=== PATIENT | male | born 2000 | race Two or more races ===

== ENCOUNTER 2022-05-11 11:18 | Emergency (ER) | payer MEDICAID ==
[~2022-05-11] VITALS: Ht 172.7 cm; Wt 90.7 kg
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
[2022-05-11] MEDS ORDERED: IBUPROFEN 400 MG TABLET ONE (11:59)
[2022-05-11] MEDS ORDERED: IBUPROFEN 400 MG TABLET PO ONE (12:00)
--- NOTE | 2022-05-11 12:00 | NUR ---
LAB AT BEDSIDE
--- NOTE | 2022-05-11 12:04 | NUR ---
PT UNABLE TO PROVIDED URINE SAMPLE AT THIS TIME, PROVIDED WITH CUP AND STATED HE WILL LET STAFF KNOW WHEN HE NEEDS TO USE THE RESTROOM.
--- NOTE | 2022-05-11 12:08 | NUR ---
COVID TEST COLLECTED AND SENT
[2022-05-11 12:34] LABS: BASOPHILS % (AUTO) 0.3 % (0.0-2.0); EOSINOPHILS % (AUTO) 0.1 % (0.0-6.0); HEMATOCRIT 46 % (39-51); HEMOGLOBIN 15.6 g/dL (13.5-17.5); LYMPHOCYTES # (AUTO) 1.4 K/uL (0.8-4.8); LYMPHOCYTES % (AUTO) 15.4 % (20.0-44.0); MEAN CORPUSCULAR HGB CONC 34 g/dl (31.0-36.0); MEAN CORPUSCULAR VOLUME 91 fL (80-96); MONOCYTES # (AUTO) 0.6 K/uL (0.1-1.30); MONOCYTES % (AUTO) 6.6 % (2.0-12.0); NEUTROPHILS # (AUTO) 6.9 K/uL (1.8-8.9); NEUTROPHILS % (AUTO) 77.6 % (43.0-81.0); PLATELET COUNT (AUTO) 207 K/uL (150-450); RED BLOOD CELL COUNT(AUTO) 5.07 MIL/uL (4.5-6.0); WHITE BLOOD COUNT (AUTO) 8.9 K/uL (4.3-11.0)
[2022-05-11 12:49] LABS: CALCIUM, SERUM 9.2 mg/dL (8.5-10.1); CARBON DIOXIDE 25 mmol/L (21-32); CHLORIDE 105 mmol/L (98-107); GLUCOSE 75 mg/dL (74-106); POTASSIUM 3.7 mmol/L (3.5-5.1); SODIUM SERUM 141 mmol/L (136-145); UREA NITROGEN, BLOOD 9 mg/dL (7-18)
[2022-05-11 12:55] LABS: ALANINE AMINOTRANSFERASE 25 U/L (12-78); ALBUMIN 4.6 g/dL (3.4-5.0); ALCOHOL, BLOOD 67 mg/dL (0-0); ALKALINE PHOSPHATASE 90 U/L (46-116); ASPARTATE AMINOTRANSFERASE 19 U/L (15-37); BILIRUBIN,DIRECT 0.2 mg/dL (0.0-0.2); BILIRUBIN,TOTAL 1.1 mg/dL (0.2-1.0); TOTAL PROTEIN, SERUM 8.5 g/dL (6.4-8.2)
[2022-05-11 12:56] LABS: ACETAMINOPHEN < 10 ug/ml (10-30)
--- NOTE | 2022-05-11 13:15 | NUR ---
URINE COLLECTED AND SENT TO LAB
[2022-05-11 13:57] LABS: BILIRUBIN,URINE SMALL (NEGATIVE); COLOR,URINE YELLOW (YELLOW); LEUKOCYTE ESTERASE ,URINE NEGATIVE (NEGATIVE); NITRITE, URINE NEGATIVE (NEGATIVE); PH,URINE 6.5 (5.0-8.0); PROTEIN,URINE 100 mg/dl (NEGATIVE); UGLUCOSE NEGATIVE (NEGATIVE)
[2022-05-11 14:09] LABS: BACTERIA,URINE 2+ /HPF (None Seen); RBC,URINE 0-2 /HPF (0-2)
[2022-05-11] MEDS ORDERED: LORAZEPAM INJ 2 MG/ML VIAL IM ONE (16:30)
[2022-05-11] MEDS ORDERED: diphenhydrAMINE HCL 50 MG/ML VIAL IM ONE (16:30)
[2022-05-11] MEDS ORDERED: HALOPERIDOL LACTATE INJ 5 MG/ML VIAL IM ONE (16:30)
[2022-05-11] MEDS ORDERED: HALOPERIDOL LACTATE INJ 5 MG/ML VIAL ONE (16:40)
[2022-05-11] MEDS ORDERED: LORAZEPAM INJ 2 MG/ML VIAL ONE (16:40)
[2022-05-11] MEDS ORDERED: diphenhydrAMINE HCL 50 MG/ML VIAL ONE (16:40)
--- NOTE | 2022-05-11 19:39 | NUR ---
PT EATING FOOD; TOLERATING WELL. SAFETY MEASURES IN PLACE.
[2022-05-11] MEDS ORDERED: DIAZEPAM 5 MG TABLET ONE (20:51)
--- NOTE | 2022-05-11 20:54 | NUR ---
PT C/O NOT BEING ABLE TO SLEEP. ADMINISTERED VALIUM 5MG ORDERED. WILL REASSESS PT
[2022-05-11] MEDS ORDERED: DIAZEPAM 5 MG TABLET PO ONE (21:00)
--- NOTE | 2022-05-12 08:44 | NUR ---
NICK CRUMP: (GIRLFRIEND) [phone]
--- NOTE | 2022-05-12 11:00 | NUR ---
PT CLEARED FOR D/C BY ALLI DICKERSON PSYCH.
[2022-05-12] MEDS ORDERED: NAPR-1192 PO (11:31)
[2022-05-12 11:57] VITALS: BP 126/76
--- NOTE | 2022-05-12 11:57 | NUR ---
Patient discharged to home in stable condition. Written and verbal after care instructions given. Patient verbalizes understanding of instruction. Prescription provided to pt.
== END 2022-05-12 11:58 | disposition home or self-care (01) ==
LOC: ER 11:19
DX: S62.326A Displaced fracture of shaft of fifth metacarpal bone, right hand, initial encounter for closed fracture (principal); W22.01XA Walked into wall, initial encounter; Y92.89 Other specified places as the place of occurrence of the external cause; Y99.8 Other external cause status; R45.851 Suicidal ideations; U07.1 COVID-19; F12.90 Cannabis use, unspecified, uncomplicated
CPT/HCPCS: 29125; 99284; 73130; 85025; 80048; 87086; 80076; 81001; 36415; 87426; 80143; 80320; 80307; C9803; G0480; J1200; J1630; J2060